=== PATIENT | female | born 1940 | race Caucasian/White ===

== ENCOUNTER → 2018-05-27 | Outpatient (CLI) | payer OTHER ==
[2018-05-27 15:13] LABS: Microalb/Creat Ratio UR, Rand 9.083 mg/g (0.000-30.000); Microalbumin, Random Urine 10.9 mg/L (0.000-20.000)
== END | disposition home or self-care (01) ==
LOC: LAB SHORT 12:15 → LAB 12:15 → LAB FUT 05-24 09:10
PROVIDERS: Internal Medicine
DX: E11.8 Type 2 diabetes mellitus with unspecified complications (principal); E55.9 Vitamin D deficiency, unspecified; E78.5 Hyperlipidemia, unspecified; D64.9 Anemia, unspecified; R63.4 Abnormal weight loss; Z79.899 Other long term (current) drug therapy
CPT/HCPCS: 82043; 82570

== ENCOUNTER → 2018-12-18 | Outpatient (CLI) | payer OTHER | END | disposition home or self-care (01) | LOC: LAB SHORT 15:31 → LAB EV 15:31 | DX: N39.0 Urinary tract infection, site not specified (principal) | CPT/HCPCS: 87077; 87086; 87186 ==

== ENCOUNTER 2020-11-05 10:18 | Emergency (ER) | payer OTHER ==
[~2020-11-05] VITALS: Ht 167.6 cm; Wt 99.8 kg
[2020-11-05] MEDS ORDERED: DOXY100 PO (11:45)
== END 2020-11-05 12:00 | disposition home or self-care (01) ==
LOC: ER 10:18
DX: L02.31 Cutaneous abscess of buttock (principal); E11.40 Type 2 diabetes mellitus with diabetic neuropathy, unspecified; I10 Essential (primary) hypertension; K21.9 Gastro-esophageal reflux disease without esophagitis; E78.5 Hyperlipidemia, unspecified
CPT/HCPCS: 10060; 99283-25; A9270

== ENCOUNTER 2022-01-15 03:36 | Emergency (ER) | payer OTHER ==
[~2022-01-15] VITALS: Ht 165.1 cm; Wt 90.7 kg
[~2022-01-15 03:36] MED LIST: DOXY100 PO
[2022-01-15] MEDS ORDERED: METF500 PO (03:58)
[2022-01-15] MEDS ORDERED: HYDCHL25 PO (03:59)
[2022-01-15] MEDS ORDERED: DILTIAZEM 24HR240 M3 PO (03:59)
[2022-01-15] MEDS ORDERED: GUANFACINE HCL2 M2 PO (03:59)
[2022-01-15] MEDS ORDERED: OMEP20ER PO (03:59)
[2022-01-15] MEDS ORDERED: GLIMEPIRIDE2 M2 PO (04:00)
[2022-01-15] MEDS ORDERED: HUMULIN N100 UNIT/6 (04:00)
[2022-01-15] MEDS ORDERED: LOSA50 PO (04:00)
[2022-01-15 04:16] LABS: BASOPHILS ABSOLUTE AUTO 0.04 K/mm3 (0.00-0.23); BASOPHILS PERCENT AUTO 0 % (0-2); EOSINOPHILS ABSOLUTE AUTO 0.03 K/mm3 (0.00-0.68); EOSINOPHILS PERCENT AUTO 0 % (0-6); Hematocrit 35.1 % (33.0-51.0); Hemoglobin 11.3 g/dL (11.5-16.0); IMMATURE GRAN ABSOLUTE AUTO 0.07 K/mm3 (0.00-0.10); IMMATURE GRAN PERCENT AUTO 1 % (0-1); LYMPHOCYTES ABSOLUTE AUTO 0.54 K/mm3 (0.84-5.20); LYMPHOCYTES PERCENT AUTO 4 % (21-46); MONOCYTES PERCENT AUTO 6 % (4-13); Mean Corpuscular HGB 27.1 pg (26.0-34.0); Mean Corpuscular HGB Conc 32.2 g/dL (31.5-36.5); Mean Corpuscular Volume 84 fL (80-100); Mean Platelet Volume 9.6 fL (9.1-12.4); NEUTROPHILS ABSOLUTE AUTO 11.81 K/mm3 (1.96-9.15); NEUTROPHILS PERCENT AUTO 89 % (41-73); Platelet Count 361 K/mm3 (150-400); RDW Coefficient Variation 15.8 % (11.7-14.2); RDW Standard Deviation 48.1 fL (35.1-46.3); Red Blood Cell Count 4.17 M/mm3 (3.80-5.20); White Blood Cell Count 13.29 K/mm3 (4.00-11.30)
[2022-01-15 04:40] LABS: Albumin, Blood 2.8 g/dL (3.4-5.0); Albumin/Globulin Ratio 0.7 (0.8-1.8); Bilirubin, Total 0.8 mg/dL (0.1-1.0); Bun/Creatinine Ratio 19.4 (12.0-20.0); Calcium, Blood 8.9 mg/dL (8.5-10.1); Creatinine, Blood 0.88 mg/dL (0.40-1.00); Globulin, Blood 3.8 g/dL (2.2-4.0); Potassium, Blood 3.4 mmol/L (3.5-5.5); Total Protein, Blood 6.6 g/dL (6.4-8.2)
[2022-01-15] MEDS ORDERED: QVAR REDIHALE10.6 G3 INH (06:01)
[2022-01-15] MEDS ORDERED: ALBU90OI INH (06:01)
== END 2022-01-15 06:34 | disposition home or self-care (01) ==
LOC: ER 03:36
PROVIDERS: Emergency Medicine
DX: J45.909 Unspecified asthma, uncomplicated (principal); E11.9 Type 2 diabetes mellitus without complications; I10 Essential (primary) hypertension; Z79.4 Long term (current) use of insulin
CPT/HCPCS: 36415; 71045; 80053; 83880; 84484; 85025; 93005; 93010; 94640; 94664; 99285-25

== ENCOUNTER 2022-07-17 16:22 | Inpatient (IN) | payer OTHER ==
[~2022-07-17] VITALS: Ht 170.2 cm; Wt 72.3 kg
[~2022-07-17 16:22] MED LIST changes: +ALBU90OI INH; +DILTIAZEM 24HR240 M3 PO; +GLIMEPIRIDE2 M2 PO; +GUANFACINE HCL2 M2 PO; +HUMULIN N100 UNIT/6; +HYDCHL25 PO; +LOSA50 PO; +METF500 PO; +OMEP20ER PO; +QVAR REDIHALE10.6 G3 INH
[2022-07-17 17:15] LABS: Source, Urine Straight Cath
[2022-07-17 17:20] LABS: Appearance, Urine Hazy (Clear); Bilirubin, Urine Neg (Neg); Blood, Urine 1+ (Neg); Color, Urine Yellow (P-Yellow); Glucose Qualitative, Urine 4+ (Neg); Ketones, Urine 4+ (Neg); Leukocyte Esterase, Urine Neg (Neg); Nitrite, Urine Neg (Neg); Protein, Urine 3+ (Neg); Urobilinogen, Urine NORM (Normal)
[2022-07-17 17:30] LABS: Amorphous Mod (0-Heavy)
[2022-07-17 17:31] LABS: Bacteria Few /hpf; Squamous Epithelial Cells Not Seen /hpf (Few)
[2022-07-17 17:38] LABS: BASOPHILS ABSOLUTE AUTO 0.07 K/mm3 (0.00-0.23); BASOPHILS PERCENT AUTO 0 % (0-2); EOSINOPHILS PERCENT AUTO 0 % (0-6); Hemoglobin 15.5 g/dL (11.5-16.0); IMMATURE GRAN ABSOLUTE AUTO 0.16 K/mm3 (0.00-0.10); IMMATURE GRAN PERCENT AUTO 1 % (0-1); LYMPHOCYTES ABSOLUTE AUTO 1.34 K/mm3 (0.84-5.20); LYMPHOCYTES PERCENT AUTO 6 % (21-46); MONOCYTES ABSOLUTE AUTO 1.36 K/mm3 (0.16-1.47); MONOCYTES PERCENT AUTO 6 % (4-13); Mean Corpuscular HGB 27.1 pg (26.0-34.0); Mean Corpuscular HGB Conc 31.6 g/dL (31.5-36.5); Mean Corpuscular Volume 86 fL (80-100); Mean Platelet Volume 10.2 fL (9.1-12.4); NEUTROPHILS ABSOLUTE AUTO 18.61 K/mm3 (1.96-9.15); NEUTROPHILS PERCENT AUTO 87 % (41-73); Platelet Count 418 K/mm3 (150-400); RDW Coefficient Variation 15.3 % (11.7-14.2); RDW Standard Deviation 47.7 fL (35.1-46.3); Red Blood Cell Count 5.71 M/mm3 (3.80-5.20); White Blood Cell Count 21.54 K/mm3 (4.00-11.30)
[2022-07-17 18:03] LABS: Albumin, Blood 3.6 g/dL (3.4-5.0); Albumin/Globulin Ratio 0.9 (0.8-1.8); Bilirubin, Total 0.6 mg/dL (0.1-1.0); Bun/Creatinine Ratio 36.9 (12.0-20.0); Calcium, Blood 10.7 mg/dL (8.5-10.1); Creatinine, Blood 0.71 mg/dL (0.40-1.00); Globulin, Blood 4.2 g/dL (2.2-4.0); Potassium, Blood 4.1 mmol/L (3.5-5.5); Total Protein, Blood 7.8 g/dL (6.4-8.2)
[2022-07-17 22:29] LABS: Anti-Xa UFH, PHA Monitoring <0.10 IU/mL
[2022-07-17] MEDS ORDERED: FURO20 PO (22:56)
[2022-07-17] MEDS ORDERED: POTCHL20ER PO (22:56)
[2022-07-17] MEDS ORDERED: ASPI325 PO (22:56)
[2022-07-17] MEDS ORDERED: Vitamin B-12100 MCG PO (22:58)
[2022-07-17] MEDS ORDERED: MAGNESIUM OXID500 MG PO (22:58)
[2022-07-17] MEDS ORDERED: DERMACINRX FOL1 EAC2 PO (22:58)
--- NOTE | 2022-07-18 05:33 | NUR ---
SHIFT SUMMARY: PT ADMITTED TO FLOOR FROM ED AT APPROXIMATELY 2100 ON 07/17/22. REPORT RECEIVED FROM ED RN BY FERMÍN SOTO CHARGE NURSE. PT A&OX4, SEVERELY [place], FAMILY TOOK HEARING AIDS HOME TO CHARGE. PT PLEASANT, COOPERATIVE, ABLE TO FOLLOW DIRECTIONS, AND MAKE NEEDS KNOWN. HR A-FIB IN 110'S-150'S. PT ASYMPTOMATIC. CARDIZEM GTT INFUSING AT 15. HR IN LOW 100'S AT RESTING. INCREASES TO 150 WHEN UP TO BSC TO VOID BUT REMAINS ASYMPTOMATIC. O2 SATS > 92% ON RA, DENIES SOB. PT HAS PRODUCTIVE COUGH WITH THICK GREEN SPUTUM. LUNG SOUNDS CLEAR THROUGHOUT. HEPRIN GTT INFUSING ORDERED, SEE EMAR. ORIENTED TO ROOM AND CALL LIGHT.
[2022-07-18 05:54] LABS: BASOPHILS ABSOLUTE AUTO 0.04 K/mm3 (0.00-0.23); BASOPHILS PERCENT AUTO 0 % (0-2); EOSINOPHILS ABSOLUTE AUTO 0.03 K/mm3 (0.00-0.68); EOSINOPHILS PERCENT AUTO 0 % (0-6); Hematocrit 42.6 % (33.0-51.0); Hemoglobin 13.8 g/dL (11.5-16.0); IMMATURE GRAN ABSOLUTE AUTO 0.14 K/mm3 (0.00-0.10); IMMATURE GRAN PERCENT AUTO 1 % (0-1); LYMPHOCYTES ABSOLUTE AUTO 1.58 K/mm3 (0.84-5.20); LYMPHOCYTES PERCENT AUTO 9 % (21-46); MONOCYTES ABSOLUTE AUTO 1.21 K/mm3 (0.16-1.47); MONOCYTES PERCENT AUTO 7 % (4-13); Mean Corpuscular HGB 27.3 pg (26.0-34.0); Mean Corpuscular HGB Conc 32.4 g/dL (31.5-36.5); Mean Corpuscular Volume 84 fL (80-100); Mean Platelet Volume 10.8 fL (9.1-12.4); NEUTROPHILS ABSOLUTE AUTO 15.51 K/mm3 (1.96-9.15); NEUTROPHILS PERCENT AUTO 84 % (41-73); Platelet Count 407 K/mm3 (150-400); RDW Coefficient Variation 15.3 % (11.7-14.2); RDW Standard Deviation 46.8 fL (35.1-46.3); Red Blood Cell Count 5.05 M/mm3 (3.80-5.20); White Blood Cell Count 18.51 K/mm3 (4.00-11.30)
[2022-07-18 06:21] LABS: Bun/Creatinine Ratio 43.4 (12.0-20.0); Calcium, Blood 10.2 mg/dL (8.5-10.1); Creatinine, Blood 0.69 mg/dL (0.40-1.00); Magnesium, Blood 1.9 mg/dL (1.6-2.4); Potassium, Blood 3.4 mmol/L (3.5-5.5)
--- NOTE | 2022-07-18 17:16 | NUR ---
Brief supportive visit. Pt resting in bed with her eyes closed. Pt wakes to moderate level of verbal stimuli. Pt is [place]. Pt's Birthday is today and birthday wishes offered. Pt denies pain, dyspnea, and anxiety. Pt reports feeling tired and sleepy from having visitors here today. Pt agreeable for PC to visit at a later time. Plan for advanced care planning and code status discussion.
--- NOTE | 2022-07-18 18:16 | NUR ---
PT SUMMARY: PT HRR CONVERTED TO AFLUTTER AT RATE 70-80'S THIS MORNING VERIFIED WITH EKG AFTER METOPROLOL PO WAS GIVEN, CARDIZEM GTT WAS PUT ON STANDBY, HRR REMAINED 70-90'S FOR THE REST OF THE SHIFT SBP 130'S DENIES CHEST PAIN/PRESSURE, SATS ABOVE 94% ON RA, AFEBRILE. THEN AT DINNER TIME PT STARTED GETTING CONFUSED UPON WAKING UP RIPPED HER CLOTHES OFF AND SAT ON THE SIDE OF THE BED HRR WENT UP TO 140-150'S AFIB. CALLED DR LYNN ALSO MADE AWARE OF THE ECHO AND TROPONIN RESULT. ORDER TO GIVE PO METOPROLOL TAR 25MG EARLY THAT WAS SCHEDULED AT BEDTIME. HRR NOW BACK DOWN TO 90-100'S. PT NOW SLEEPING IN BED. BED ALARM ON FOR SAFETY. CALL LIGHTS IN REACH WILL REPORT TO SAGE ARRINGTON
[2022-07-19 04:21] LABS: Hematocrit 41.1 % (33.0-51.0); Hemoglobin 13.5 g/dL (11.5-16.0); Mean Corpuscular HGB 27.7 pg (26.0-34.0); Mean Corpuscular HGB Conc 32.8 g/dL (31.5-36.5); Mean Corpuscular Volume 84 fL (80-100); Mean Platelet Volume 10.6 fL (9.1-12.4); Platelet Count 340 K/mm3 (150-400); RDW Coefficient Variation 14.9 % (11.7-14.2); RDW Standard Deviation 45.1 fL (35.1-46.3); Red Blood Cell Count 4.87 M/mm3 (3.80-5.20); White Blood Cell Count 15.77 K/mm3 (4.00-11.30)
--- NOTE | 2022-07-19 04:26 | NUR ---
SHIFT SUMMARY PT A&Ox3, CAN BE FORGETFUL AT TIMES. PT DIDN'T ALWAYS USE CALL LIGHT BEFOR TRYING TO GET OUT OF BED, BED ALARM ON. [place], COOPERATOVE WITH CARE AND COMMUNICATES NEEDS APPROPRIATELY. BP STABLE, DENIES CP/PRESSURE. AFIB/AFLUTTER 90-110's AT REST, 140-150's WITH ACTIVITY, PT ASYMPTOMATIC. SpO2> 92% RA, DENIES SOB. PT CONTINENT OF URINE, SBA TO BSC. NO BM THIS SHIFT. HEPARIN gtt @ 15units/hr AT THIS TIME PER PHARMACY. NO OTHER EVENTS, WILL REPORT TO ONCOMING RN.
[2022-07-19 05:24] LABS: Bun/Creatinine Ratio 40.1 (12.0-20.0); Calcium, Blood 9.6 mg/dL (8.5-10.1); Creatinine, Blood 0.7 mg/dL (0.40-1.00); Potassium, Blood 3.5 mmol/L (3.5-5.5)
--- NOTE | 2022-07-19 05:47 | NUR ---
UPDATE PHYSICIAN ELECTRONICS ENGINEERING TECHNOLOGIST NOTIFIED THIS RN OF [facility]. PT ASYMPTOMATIC, BP STABLE, NO RESPIRATORY SYMPTOMS. EKG DONE, PHYSICIAN NOTIFIED. NO NEW ORDERS AT THIS TIME.
--- NOTE | 2022-07-19 17:36 | NUR ---
SHIFT SUMMARY PT AMBULATED WITH SON THIS AFTERNOON, PRIMARY RN OBSERVED PT STARTING TO GET TACHYCARDIC WITH RATE IN THE 140'S AND INSTRUCTED THE SON TO HAVE THE PT RETURN TO HER ROOM. PRIMARY RN PLACED A CALL TO THE HOSPITALIST AND INFORMED HIM OF THE PT STATUS. HOSPITALIST INCREASED THE DOSE OF METOPROLOL TO 50 MG PO BID TO START TONIGHT. AN ADDITIONAL DOSE OF METOPROLOL 25 MG WAS GIVEN A ONE TIME DOSE AT 1230. THE PATIENTS HEART RATE DECREASED TO 90'S AND MAINTAINED T/O THE REST OF THE SHIFT. NO OTHER EVENTS HAPPENED T/O THE SHIFT. SON AT BEDSIDE T/O THE SHIFT AND AWARE OF THE PLAN OF CARE. WILL GIVE REPORT TO THE ONCOMING RN AND CONTINUE TO MONITOR.
--- NOTE | 2022-07-19 18:11 | NUR ---
THIS RN VERIFIED AND AGREED WITH STUDENT PT SUMMARY DOCUMENTATION.
--- NOTE | 2022-07-20 05:02 | NUR ---
SHIFT SUMMARY PT A&Ox4, CAN BE FORGETFUL AT TIMES. PT DIDN'T ALWAYS USE CALL LIGHT BEFOR TRYING TO GET OUT OF BED, BED ALARM ON. [place], COOPERATOVE WITH CARE AND COMMUNICATES NEEDS APPROPRIATELY. BP STABLE, DENIES CP/PRESSURE. AFIB/AFLUTTER 80's AT REST, BRIEFLY UP 130's WITH ACTIVITY, PT ASYMPTOMATIC. SpO2> 92% RA, DENIES SOB. PT CONTINENT OF URINE, SBA TO BSC. NO BM THIS SHIFT. NO OTHER EVENTS, WILL REPORT TO ONCOMING RN.
[2022-07-20] MEDS ORDERED: ELIQUIS5 M2 PO (12:23)
[2022-07-20] MEDS ORDERED: METO50 PO (12:26)
--- NOTE | 2022-07-20 13:06 | NUR ---
DISCHARGE SUMMARY PATIENT ALERT AND ORIENTED AND EKUK. SON PRESENT IN ROOM THROUGHOUT AM. TOLERATING CARDIAC DIET AND PO LIQUIDS. VOIDING WELL. HR CONTROLLED IN 90S, LOW 100S ON METOPROLOL. DISCHARGE ORDERS GIVEN. DISCHARGE EDUCATION GIVEN TO PATIENT AND FAMILY ON NEW RX'S, SIGNS AND SYMPTOMS TO RETURN, FOLLOW UP WITH PCP. IV DC'D WNL. PATIENT AND FMAILY LEFT UNIT AT 1255 VIA WHEELCHAIR FOR HOME.
== END 2022-07-20 12:55 | disposition home or self-care (01) | DRG 281 ==
LOC: ER 16:22 → PCU 20:35
PROVIDERS: Emergency Medicine; Internal Medicine; Student in an Organized Health Care Education/Training Program; ADMIT Student in an Organized Health Care Education/Training Program
DX: I21.4 Non-ST elevation (NSTEMI) myocardial infarction (principal); I48.92 Unspecified atrial flutter; I48.91 Unspecified atrial fibrillation; K21.9 Gastro-esophageal reflux disease without esophagitis; I10 Essential (primary) hypertension; E66.9 Obesity, unspecified; E11.9 Type 2 diabetes mellitus without complications; I25.10 Atherosclerotic heart disease of native coronary artery without angina pectoris; Z79.899 Other long term (current) drug therapy; Z79.84 Long term (current) use of oral hypoglycemic drugs; Z79.4 Long term (current) use of insulin; Z79.51 Long term (current) use of inhaled steroids; Z68.27 Body mass index [BMI] 27.0-27.9, adult
CPT/HCPCS: 36415; 71045; 80048; 80053; 81001; 82947; 83690; 83735; 83880; 84484; 85025; 85027; 85520; 85610; 93005; 93010; 96365; 96375; 96376; 99285-25; A9270; C8929; J1644; J1815; J2405; Q9957

== ENCOUNTER → 2023-06-04 | Outpatient (CLI) | payer OTHER ==
[~2023-06-04] MED LIST changes: +ASPI325 PO; +DERMACINRX FOL1 EAC2 PO; +ELIQUIS5 M2 PO; +FURO20 PO; +MAGNESIUM OXID500 MG PO; +METO50 PO; +POTCHL20ER PO; +Vitamin B-12100 MCG PO
== END ==
LOC: LAB 09:36 → LAB SHORT 09:36 → LAB FUT 05-30 13:15 → EDSTATUS 05-30 13:15
PROVIDERS: Internal Medicine
DX: R79.89 Other specified abnormal findings of blood chemistry (principal)
CPT/HCPCS: 81050; 86335

== ENCOUNTER → 2023-11-28 | Outpatient (CLI) | payer OTHER ==
[~2023-11-28] MED LIST changes: +ASTEPRO AL205.5 MCG/; +Aspir 8181 MG PO; +CEFP200 PO; +Clotrimazole-Be15 GM TOP; -HUMULIN N100 UNIT/6; +LASIX20 M2 PO; +LOSA25 PO; +NOVOLIN N100 UNIT/2 SC; +OXYC5 PO; +POTA10T PO; +VITAMIN D31000 UNI1 PO; +[UNRECOGNIZED DRUG - OTHER] BOTHEYES
[2023-11-28 11:24] LABS: Source, Urine Clean Catch
[2023-11-28 12:10] LABS: Appearance, Urine Clear (Clear); Bilirubin, Urine Neg (Neg); Blood, Urine Neg (Neg); Color, Urine Yellow (P-Yellow); Glucose Qualitative, Urine Neg (Neg); Ketones, Urine Neg (Neg); Leukocyte Esterase, Urine 1+ (Neg); Nitrite, Urine Neg (Neg); Protein, Urine Neg (Neg); Urobilinogen, Urine NORM (Normal); pH, Urine 6.5 (5.0-8.0)
[2023-11-28 12:17] LABS: Bacteria Few /hpf; Red Blood Cells, Urine Not Seen /hpf (0-2); Squamous Epithelial Cells Few /hpf (Few)
== END | disposition home or self-care (01) ==
LOC: LAB 11:23 → LAB SHORT 11:23 → LAB FUT 11-27 10:00
PROVIDERS: Internal Medicine
DX: R35.0 Frequency of micturition (principal)
CPT/HCPCS: 81001; 87077; 87086; 87186

== ENCOUNTER → 2024-09-15 | Outpatient (CLI) | payer OTHER ==
[2024-09-15 11:39] LABS: Source, Urine Clean Catch
[2024-09-15 13:17] LABS: Appearance, Urine Clear (Clear); Bilirubin, Urine Neg (Neg); Blood, Urine 1+ (Neg); Color, Urine Yellow (P-Yellow); Glucose Qualitative, Urine Neg (Neg); Ketones, Urine Neg (Neg); Leukocyte Esterase, Urine 2+ (Neg); Nitrite, Urine Pos (Neg); Protein, Urine 1+ (Neg); Specific Gravity, Urine 1.005 (1.003-1.022); Urobilinogen, Urine NORM (Normal)
[2024-09-15 13:34] LABS: Bacteria Mod /hpf; Red Blood Cells, Urine 0-2 /hpf (0-2); Squamous Epithelial Cells Rare /hpf (Few)
== END | disposition home or self-care (01) ==
LOC: LAB 11:38 → LAB SHORT 11:38 → LAB FUT 09-15 11:00
PROVIDERS: Internal Medicine
DX: R30.0 Dysuria (principal); R35.0 Frequency of micturition
CPT/HCPCS: 81001; 87077; 87086; 87186

== ENCOUNTER 2024-10-25 20:06 | Emergency (ER) | payer OTHER ==
[~2024-10-25] VITALS: Ht 172.7 cm; Wt 99.8 kg
[2024-10-25 20:13] VITALS: BP 188/105
[2024-10-25 20:29] LABS: BASOPHILS ABSOLUTE AUTO 0.04 K/mm3 (0.00-0.23); BASOPHILS PERCENT AUTO 0 % (0-2); EOSINOPHILS ABSOLUTE AUTO 0.16 K/mm3 (0.00-0.68); EOSINOPHILS PERCENT AUTO 2 % (0-6); Hematocrit 42.0 % (33.0-51.0); Hemoglobin 13.0 g/dL (11.5-16.0); IMMATURE GRAN ABSOLUTE AUTO 0.07 K/mm3 (0.00-0.10); IMMATURE GRAN PERCENT AUTO 1 % (0-1); LYMPHOCYTES ABSOLUTE AUTO 1.15 K/mm3 (0.84-5.20); LYMPHOCYTES PERCENT AUTO 12 % (21-46); MONOCYTES ABSOLUTE AUTO 0.57 K/mm3 (0.16-1.47); MONOCYTES PERCENT AUTO 6 % (4-13); Mean Corpuscular HGB Conc 31.0 g/dL (31.5-36.5); Mean Corpuscular Volume 84 fL (80-100); NEUTROPHILS ABSOLUTE AUTO 7.52 K/mm3 (1.96-9.15); NEUTROPHILS PERCENT AUTO 79 % (41-73); NRBC ABSOLUTE 0.00 K/mm3 (0.00-0.02); NRBC Auto 0.0 /100 WBC (0.0-0.2); Platelet Count 297 K/mm3 (150-400); RDW Coefficient Variation 15.8 % (11.7-14.2); RDW Standard Deviation 48.5 fL (35.1-46.3)
[2024-10-25 20:57] LABS: Alanine Aminotransfer (ALT/SGP 16.0 U/L (12-78); Albumin, Blood 3.2 g/dL (3.4-5.0); Albumin/Globulin Ratio 0.8 (0.8-1.8); Anion Gap 7.0 mmol/L (3-11); Aspartate Aminotrans (AST/SGOT 28.0 U/L (12-37); Bilirubin, Total 0.4 mg/dL (0.1-1.0); Blood Urea Nitrogen 20.0 mg/dL (8-24); CO2, Blood 26.0 mmol/L (21-32); Calcium, Blood 9.5 mg/dL (8.5-10.1); Chloride, Blood 106.0 mmol/L (98-108); Creatinine, Blood 0.88 mg/dL (0.40-1.00); Globulin, Blood 4.2 g/dL (2.2-4.0); Glucose, Blood 274.0 mg/dL (70-99); Potassium, Blood 5.1 mmol/L (3.5-5.5); Sodium, Blood 134.0 mmol/L (136-145); Total Protein, Blood 7.4 g/dL (6.4-8.2)
[2024-10-25] MEDS ORDERED: Morphine Sulfate 4 MG/1 ML Injection IV ONE (21:50)
[2024-10-25] MEDS ORDERED: Ondansetron HCl 2 MG / ML 2ML Vial IV ONE (21:50)
== END 2024-10-26 00:34 | disposition home or self-care (01) ==
LOC: ER 20:06
PROVIDERS: Student in an Organized Health Care Education/Training Program
DX: S52.532A Colles' fracture of left radius, initial encounter for closed fracture (principal); K21.9 Gastro-esophageal reflux disease without esophagitis; I48.91 Unspecified atrial fibrillation; E11.9 Type 2 diabetes mellitus without complications; I10 Essential (primary) hypertension; W01.0XXA Fall on same level from slipping, tripping and stumbling without subsequent striking against object, initial encounter; Z79.82 Long term (current) use of aspirin; Z79.899 Other long term (current) drug therapy; Z88.0 Allergy status to penicillin; Z88.2 Allergy status to sulfonamides; Z88.8 Allergy status to other drugs, medicaments and biological substances
CPT/HCPCS: 25605; 70450; 73090; 73110; 76000; 80053; 85025; 96374-59; 96375-59; 99284-25; J2270; J2405

== ENCOUNTER 2024-11-10 08:55 | Day surgery (SDC) | payer OTHER ==
[~2024-11-10] VITALS: Ht 170.2 cm; Wt 99.2 kg
[2024-11-10] MEDS ORDERED: CeFAZolin Sodium 2,000 MG VIAL ONE (09:28)
[2024-11-10] MEDS ORDERED: FentaNYL Citrate 50 MCG/ML 2 ML Injection ONE (11:01)
[2024-11-10] MEDS ORDERED: Bupivacaine 0.5% HCl 5 MG/ML 30MLVIAL ONE (11:04)
--- NOTE | 2024-11-10 11:06 | NUR ---
11/10/24 1106 MICHAEL BATES PT HAS CHAFFING UNDER BILAT BREAST AND IN THE LEFT GROIN. PT STATES SHE IS USING A CREAM THAT THE DR GAVE HER BUT HASNT BEEN ABLE TO DO HER PERSONAL HYGIENE WELL WITH HER FX L WRIST. RN DISCUSSED PT HAVING HER DAUGHTER HELP HER WASH AND DRY THOROUGHLY EVERY DAY AND APPLY THE RX POWDER AND CREAM AT LEAST 2 X DAILY. PT EDUCATION GIVEN ABOUT THE RISK OF BREAKDOWN AND RISK OF INFECTION. PT SON PALMER AWARE AND WILL TELL HIS SISTER WHO LIVES W/ FAMILY.
[2024-11-10] MEDS ORDERED: ePHEDrine Sulfate 50 MG/ML 1ML Injection ONE (12:04)
--- NOTE | 2024-11-10 13:34 | NUR ---
11/10/24 1334 Abida Perez UPON ARRIVAL FROM OR, PT NORMTENSIVE, VSS DESAT TO 90% AFTER 5 MINS, 2L NC APPLIED. 1315 BECAME HYPERTENSIVE, MULTIPLE CUFFS IN MULTIPLE POSITIONS TRIED TO GET BP WNL. CO-NURSE JONATHAN AT BEDSIDE. PT BLINKING W EYES CLOSED 1330 - PT OPENS EYES, TRACKING, NOT FOLLOWING COMMANDS OR SPEAKING AT THIS TIME
[2024-11-10] MEDS ORDERED: HydrALAZINE HCl 20 MG / ML 1ML Vial ONE (13:41)
--- NOTE | 2024-11-10 14:21 | NUR ---
11/10/24 1421 Abida Perez 1415 - REASSUMED CARE OF PT FROM NURY QUEEN PT SATTING 91-94% ON ROOM AIR IN CHAIR. A&O, TALKING W FAMILY. INCENTIVE SPIROMETRY . LEFT FINGERS SLIGHTLY EDEMATOUS, NUMB, WEAK WIGGLING ON COMMAND
[2024-11-10 14:57] VITALS: BP 153/82
== END 2024-11-10 15:18 | disposition home or self-care (01) ==
LOC: ORSCSDS 08:55
PROVIDERS: Orthopaedic Surgery
PROC: 0PSJ04Z Reposition Left Radius with Internal Fixation Device, Open Approach (ICD-10-PCS; principal; 2024-11-10 10:45)
DX: S52.502A Unspecified fracture of the lower end of left radius, initial encounter for closed fracture (principal); W18.30XA Fall on same level, unspecified, initial encounter; I48.91 Unspecified atrial fibrillation; Z79.01 Long term (current) use of anticoagulants; I25.10 Atherosclerotic heart disease of native coronary artery without angina pectoris; I25.2 Old myocardial infarction; Z87.891 Personal history of nicotine dependence; E66.01 Morbid (severe) obesity due to excess calories; Z68.34 Body mass index [BMI] 34.0-34.9, adult; E11.22 Type 2 diabetes mellitus with diabetic chronic kidney disease; I12.9 Hypertensive chronic kidney disease with stage 1 through stage 4 chronic kidney disease, or unspecified chronic kidney disease; N18.9 Chronic kidney disease, unspecified; Z79.4 Long term (current) use of insulin; Z79.899 Other long term (current) drug therapy
CPT/HCPCS: 82947; C1713; J0360; J0690; J2704; J3010; J7120